=== PATIENT | female | born 1965 | race Caucasian/White ===

== ENCOUNTER 2021-06-26 12:34 | Emergency (ER) | payer OTHER ==
[2021-06-26] MEDS ORDERED: aspirin 81mg tab.chew PO ONE (13:05)
[2021-06-26] MEDS ORDERED: nitroGLYCERIN 0.4mg SUBLingual tab SL PRN (13:05)
== END 2021-06-26 19:22 | disposition left against medical advice (07) ==
LOC: ER 12:34
DX: R07.89 Other chest pain (principal); R42 Dizziness and giddiness; R11.0 Nausea; Z72.89 Other problems related to lifestyle; Z88.2 Allergy status to sulfonamides
CPT/HCPCS: 93005; 99283; 99284

== ENCOUNTER 2021-07-24 11:53 | Emergency (ER) | payer BC, OTHER ==
[~2021-07-24] VITALS: Ht 167.6 cm; Wt 67.3 kg
[2021-07-24 11:57] VITALS: BP 136/89
[2021-07-24 12:29] LABS: BASOPHILS % (AUTO) 0.9 % (0-1); EOSINOPHILS # (AUTO) 0.2 X10'3 (0-0.9); EOSINOPHILS % (AUTO) 5.4 % (0-6); HEMATOCRIT 41.4 % (35.0-45.0); HEMOGLOBIN 14.2 g/dl (12.0-16.0); LYMPHOCYTES # (AUTO) 1.4 X10'3 (1.1-4.8); LYMPHOCYTES % (AUTO) 31.4 % (21-51); MEAN CORPUSCULAR HEMOGLOBIN 33.4 PG (27.0-31.0); MEAN CORPUSCULAR HGB CONC 34.2 g/dL (33.0-36.5); MEAN CORPUSCULAR VOLUME 97.7 FL (78-98); MONOCYTES # (AUTO) 0.4 X10'3 (0-0.9); MONOCYTES % (AUTO) 9.3 % (2-12); NEUTROPHILS # (AUTO) 2.3 X10'3 (1.8-7.7); PLATELET COUNT 282 X10'3 (140-440); RED BLOOD COUNT 4.24 X10'6 (4.20-5.60); RED CELL DISTRIBUTION WIDTH 12.4 % (11.5-14.5); WHITE BLOOD COUNT 4.4 X10'3 (4.5-11.0)
[2021-07-24 12:41] LABS: ALANINE AMINOTRANSFERASE 41 U/L (12-78); ALBUMIN 4.2 G/DL (3.4-5.0); ALBUMIN/GLOBULIN RATIO 1.2 (1.1-1.5); ALKALINE PHOSPHATASE 83 IU/L (46-116); ANION GAP 10 (8-16); ASPARTATE AMINO TRANSFERASE 28 U/L (10-37); BLOOD UREA NITROGEN 11 MG/DL (7-18); BUN/CREATININE RATIO 13.1 (6.6-38.0); CALCIUM 8.9 MG/DL (8.5-10.1); CHLORIDE 106 MMOL/L (99-107); CREATININE 0.84 MG/DL (0.40-0.90); GLUCOSE 99 MG/DL (70-104); POTASSIUM 4.2 MMOL/L (3.5-5.1); SODIUM 143 MMOL/L (135-145); TOTAL CARBON DIOXIDE 26.8 MMOL/L (24-32); TOTAL PROTEIN 7.6 G/DL (6.4-8.2); eGFR 70 ML/MIN
== END 2021-07-24 15:35 | disposition home or self-care (01) ==
LOC: ER 11:53
DX: R00.2 Palpitations (principal); R07.89 Other chest pain; R20.0 Anesthesia of skin; Z88.2 Allergy status to sulfonamides; Z72.89 Other problems related to lifestyle
CPT/HCPCS: 36415; 71045; 80053; 83880; 84484; 85025; 93005; 99285